=== PATIENT | male | born 1955 | race Caucasian/White ===

== ENCOUNTER → 2024-09-22 19:09 | Outpatient (REF) | payer MEDICARE, SELFPAY | LOC: RAD 19:09 | PROVIDERS: ATTENDING PHYSICIAN Nurse Practitioner Adult Health | DX: R05.1 Acute cough (principal) | CPT/HCPCS: 71046 ==

== ENCOUNTER → 2024-10-13 15:05 | Outpatient (REF) | payer MEDICARE, SELFPAY | LOC: RAD 15:05 | PROVIDERS: ATTENDING PHYSICIAN Nurse Practitioner Adult Health | DX: J18.9 Pneumonia, unspecified organism (principal) | CPT/HCPCS: 71046 ==

== ENCOUNTER → 2024-10-30 09:59 | Outpatient (REF) | payer MEDICARE, SELFPAY | LOC: RAD 09:59 | PROVIDERS: ATTENDING PHYSICIAN Nurse Practitioner Adult Health | DX: J18.9 Pneumonia, unspecified organism (principal); R05.1 Acute cough | CPT/HCPCS: 71046 ==